=== PATIENT | male | born 1935 | race Caucasian/White ===

== ENCOUNTER 2016-05-24 13:59 | Inpatient (IN) | payer OTHER, MEDICARE ==
[2016-05-24] VITALS (7 sets, daily range): BP systolic 106–154; BP diastolic 58–68; PULSE 80–122; RESP 16–20; TEMP 96.4–99.4; O2SAT 89–98
[~2016-05-24] VITALS: Ht 175.3 cm; Wt 65.3 kg
[2016-05-24] MEDS ORDERED: PRAV40TA2 PO (14:26)
[2016-05-24] MEDS ORDERED: ASPI81CH37 CHEW (14:26)
[2016-05-24] MEDS ORDERED: VITA100018 PO (14:26)
[2016-05-24] MEDS ORDERED: METO100T PO (14:26)
[2016-05-24] MEDS ORDERED: SODIUM CHLORIDE 0.9% FLUSH 5 ML FLUSH IVF PRN (14:30)
[2016-05-24] MEDS ORDERED: methylPREDNISolone SOD SUCC 125 MG/2 ML VIAL IVP ONE (14:30)
[2016-05-24] MEDS: RESP: ALBUTEROL 2.5 MG/IPRATROPIUM 0.5 MG NEB (SCH) INH (14:31)
--- NOTE | 2016-05-24 14:47 | PD ---
HPI Chief Complaint: Respiratory Symptoms Time Seen by Provider: 14:20 Travel History International Travel<30 days: No Contact w/Intl Traveler<30days: No Traveled to known affect area: No History of Present Illness HPI This is a 80-year-old male who presents to the emergency department with 4 days of productive cough, shortness of breath, and some nasal congestion particularly in the morning, constant, moderate severity, worsening. His family finally convinced him to come to the emergency department. He says his shortness of breath worsens when he exerts himself. He is not sure what color his sputum is. He does smoke a pack of cigarettes per day. He does say he's had some increasing lower extremity swelling. He denies any recent trips. PFSH Past Medical History Hx Anticoagulant Therapy: Yes (asa 81mg) Cardiovascular Problems: Yes (htn on meds, NH, bypass) High Cholesterol: Yes Hypertension: Yes Myocardial Infarction: Yes Influenza Vaccination: Yes Social History Alcohol Use: No Tobacco Use: Yes (1 ppd) Substance Use: No Allergies-Medications (Allergen,Severity, Reaction): Coded Allergies: No Known Allergies (Verified , 05/24/16) Reported Meds & Prescriptions Reported Meds & Active Scripts Active Reported Aspirin Low Dose (Aspirin) 81 Mg Chew 81 Mg CHEW DAILY Vitamin D3 (Cholecalciferol) 1,000 Unit Tab 1,000 Units PO DAILY Pravastatin 40 Mg Tab 40 Mg PO DAILY Metoprolol Tartrate 100 Mg Tab 100 Mg PO DAILY Review of Systems Except as stated in HPI: all other systems reviewed are Neg Physical Exam Narrative GENERAL:Well appearing, no acute distress SKIN: Warm and dry. HEAD: Atraumatic. Normocephalic. EYES: Pupils equal and round. No injection or drainage. ENT: Moist mucous membranes NECK: Trachea midline. CARDIOVASCULAR: Regular rate and rhythm. No murmur appreciated. 1+ bilateral pitting edema in the lower extremities. RESPIRATORY: Diffuse expiratory wheezing, no accessory muscle use or tachypnea. GASTROINTESTINAL: Abdomen soft, non-tender, nondistended. MUSCULOSKELETAL: No obvious deformities. NEUROLOGICAL: Awake and alert. No obvious cranial nerve deficits. Moving all extremities. PSYCHIATRIC: Appropriate mood and affect; insight and judgment normal. Data Data Last Documented VS Vital Signs Date Time Temp Pulse Resp B/P Pulse Ox O2 Delivery O2 Flow Rate FiO2 05/24/16 15:32 100 18 152/58 93 Nasal Cannula 2 1/21/17 14:05 99.4 Orders Complete Blood Count With Diff (05/24/16 14:20) Comprehensive Metabolic Panel (05/24/16 14:20) B-Type Natriuretic Peptide (05/24/16 14:20) Troponin I (05/24/16 14:20) Iv Access Insert/Monitor (05/24/16 14:20) Electrocardiogram (05/24/16 14:20) Ecg Monitoring (05/24/16 14:20) Oximetry (05/24/16 14:20) Oxygen Administration (05/24/16 14:20) Chest, Single Ap (05/24/16 14:20) Sodium Chloride 0.9% Flush (Ns Flush) (05/24/16 14:30) Methylprednisolone So Succ Inj (Solumedr (05/24/16 14:30) Albuterol-Ipratropium Neb (Duoneb Neb) (05/24/16 14:30) Ceftriaxone Inj (Rocephin Inj) (05/24/16 15:15) Azithromycin Inj (Zithromax Inj) (05/24/16 15:15) Ct Thorax/ Chest Wo Iv Contras (05/24/16 ) Admit Order (Ed Use Only) (05/24/16 17:11) Labs Laboratory Tests Test 05/24/16 14:44 White Blood Count 15.9 TH/MM3 Red Blood Count 3.49 MIL/MM3 Hemoglobin 10.4 GM/DL Hematocrit 30.8 % Mean Corpuscular Volume 88.1 FL Mean Corpuscular Hemoglobin 29.7 PG Mean Corpuscular Hemoglobin 33.8 % Concent Red Cell Distribution Width 13.1 % Platelet Count 394 TH/MM3 Mean Platelet Volume 8.2 FL Neutrophils (%) (Auto) 78.7 % Lymphocytes (%) (Auto) 11.0 % Monocytes (%) (Auto) 7.0 % Eosinophils (%) (Auto) 0.8 % Basophils (%) (Auto) 2.5 % Neutrophils # (Auto) 12.5 TH/MM3 Lymphocytes # (Auto) 1.8 TH/MM3 Monocytes # (Auto) 1.1 TH/MM3 Eosinophils # (Auto) 0.1 TH/MM3 Basophils # (Auto) 0.4 TH/MM3 CBC Comment DIFF FINAL Differential Comment Sodium Level 137 MEQ/L Potassium Level 4.1 MEQ/L Chloride Level 103 MEQ/L Carbon Dioxide Level 23.3 MEQ/L Anion Gap 11 MEQ/L Blood Urea Nitrogen 22 MG/DL Creatinine 1.60 MG/DL Estimat Glomerular Filtration 42 ML/MIN Rate Random Glucose 104 MG/DL Calcium Level 8.8 MG/DL Total Bilirubin 0.4 MG/DL Aspartate Amino Transf 12 U/L (AST/SGOT) Alanine Aminotransferase 10 U/L (ALT/SGPT) Alkaline Phosphatase 59 U/L Troponin I LESS THAN 0.02 NG/ML B-Type Natriuretic Peptide 124 PG/ML Total Protein 7.1 GM/DL Albumin 2.4 GM/DL MDM Medical Decision Making Medical Screen Exam Complete: Yes Emergency Medical Condition: Yes Interpretation(s) Afebrile, tachycardic, hypoxic on room air Leukocytosis with left shift Renal insufficiency BNP is 124 Last 24 hours Impressions Chest X-Ray 05/24/16 1420 Signed Impressions: Service Date/Time: Tuesday, May 24, 2016 14:51 - CONCLUSION: 1. Ovoid mass overlying the right lower lung zone measuring 6.5 cm. This could represent a focal round pneumonia or a pulmonary mass/malignancy. Consider chest CT with IV contrast for further characterization if it would assist with clinical management. 2. There is also mild airspace consolidation at the left lung base. Bereket Kevin MD Differential Diagnosis Pneumonia, congestive heart failure, lung cancer, pulmonary embolism Narrative Course This is a 80-year-old male who presents to the emergency department with worsening shortness of breath over the past week. He was placed on a monitor and an IV was established. He was found to be dyspneic and hypoxic on room air to 88%. Chest x-ray demonstrates a right sided lung mass. CT was obtained which demonstrates right sided lung mass as well as possible pneumonia. Patient was given ceftriaxone and azithromycin, DuoNeb's and methylprednisolone. He will be admitted for continued antibiotic therapy. Physician Communication Physician Communication Discussed with Dr. Calderon Diagnosis Primary Impression: Lung mass Additional Impression: Pneumonia Qualified Code: J18.1 - Pneumonia of left lower lobe due to infectious organism Admitting Information Admitting Physician Requests: Admit Zehra Regan MD May 24, 2016 14:46
[2016-05-24 14:58] LABS: AUTOMATED NEUTROPHIL # 12.5 TH/MM3 (1.8-7.7); BASOPHIL # 0.4 TH/MM3 (0-0.2); BASOPHIL % 2.5 % (0.0-2.0); EOSINOPHIL # 0.1 TH/MM3 (0-0.4); EOSINOPHIL % 0.8 % (0.0-4.0); HEMATOCRIT 30.8 % (39.0-51.0); LYMPHOCYTE # 1.8 TH/MM3 (1.0-4.8); MEAN CELL VOLUME 88.1 FL (80.0-100.0); MEAN CORPUSCULAR HEMOGLOBIN 29.7 PG (27.0-34.0); MEAN CORPUSCULAR HGB CONC 33.8 % (32.0-36.0); NEUT % 78.7 % (16.0-70.0); PLATELET COUNT 394 TH/MM3 (150-450); RED BLOOD COUNT 3.49 MIL/MM3 (4.50-5.90); RED CELL DISTRIBUTION WIDTH 13.1 % (11.6-17.2); WHITE BLOOD COUNT 15.9 TH/MM3 (4.0-11.0)
[2016-05-24 14:59] LABS: HEMO FLAGS DIFF FINAL
[2016-05-24 15:02] LABS: CHLORIDE 103 MEQ/L (98-107); POTASSIUM 4.1 MEQ/L (3.5-5.1); SODIUM (NA) 137 MEQ/L (136-145)
[2016-05-24 15:06] LABS: ANION GAP 11 MEQ/L (5-15); BICARBONATE 23.3 MEQ/L (21.0-32.0); BLOOD UREA NITROGEN 22 MG/DL (7-18)
[2016-05-24 15:09] LABS: ALT (GPT) 10 U/L (12-78); AST (GOT) 12 U/L (15-37); GLOMERULAR FILTRATION RATE 42 ML/MIN (>89)
[2016-05-24 15:10] LABS: TOTAL BILIRUBIN ADULT 0.4 MG/DL (0.2-1.0)
[2016-05-24 15:12] LABS: ALKALINE PHOSPHATASE 59 U/L (45-117)
[2016-05-24] MEDS ORDERED: AZITHROMYCIN INJ 500 MG in SODIUM CHLOR 0.9% 250 ML INJ 250 ML IV ONE (15:15)
[2016-05-24] MEDS ORDERED: cefTRIAXone INJ 1,000 MG in SODIUM CHLORIDE 0.9% INJ 100 ML IV ONE (15:15)
--- NOTE | 2016-05-24 15:15 | RADHPO ---
EXAM DATE/TIME: 05/24/2016 14:51 [facility] COMPARISON: No previous studies available for comparison. INDICATIONS : Short of breath, cough MEDICAL HISTORY : None. SURGICAL HISTORY : None. ENCOUNTER: Initial ACUITY: 1 week PAIN SCORE: 0/10 LOCATION: Bilateral chest FINDINGS: Portable AP view of the chest demonstrates a normal-sized cardiac silhouette. There is a focal massli ke consolidative opacity overlying the right lower lung zone measuring 6.5 x 4.9 cm. There is also mi ld consolidation at the left lung base. No pleural effusion or pneumothorax is visualized. Bones and soft tissues demonstrate no acute finding. CONCLUSION: 1. Ovoid mass overlying the right lower lung zone measuring 6.5 cm. This could represent a focal roun d pneumonia or a pulmonary mass/malignancy. Consider chest CT with IV contrast for further characteri zation if it would assist with clinical management. 2. There is also mild airspace consolidation at the left lung base. Bereket Kevin MD on May 24, 2016 at 15:12 Board Certified Radiologist. This report was verified electronically.
--- NOTE | 2016-05-24 16:51 | RADHPO ---
EXAM DATE/TIME: 05/24/2016 15:57 [facility] COMPARISON: No previous studies available for comparison. INDICATIONS : Cough and shortness of breath for three days. RADIATION DOSE: 10.89 CTDIvol (mGy) MEDICAL HISTORY : Myocardial infarction. Hypertension. SURGICAL HISTORY : CABG ENCOUNTER: Initial ACUITY: 3 days PAIN SCALE: 0/10 LOCATION: Bilateral chest TECHNIQUE: Volumetric scanning of the chest was performed. Using automated exposure control and adjustment of the mA and/or kV according to patient size, radiation dose was kept as low as reasonab ly achievable to obtain optimal diagnostic quality images. FINDINGS: There is a 6 cm mass seen at the posterior right lower lobe. This is concerning for an underlying ne oplasm. There is some surrounding suspected inflammatory change in the right lower lobe. There is a lso some patchy nodularity seen in the posterior aspect of the right upper lobe and in the anteromedi al right middle lobe and the left lingula. There is more prominent consolidation seen at the left lo wer lobe. There do appear to be enlarged lymph nodes in the subcarinal region. Normal sized lymph n odes are seen throughout the rest of the mediastinum. 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 Atherosclerotic c alcifications are seen throughout the arterial system including at the coronary arteries. The bony s tructures are grossly intact. CONCLUSION: 1. Large 6 cm mass in the right lower lobe concerning for possible neoplasm. This is amenable to pe rcutaneous biopsy. 2. Patchy areas of suspected consolidation seen throughout the rest of the lungs as described above being most prominent in the left lower lobe. Superimposed areas of pneumonia need to be considered. 3. Possible adenopathy in the subcarinal region. 4. Incidental note is made of an aberrant right subclavian artery. This is a normal variant. Bereket Cho MD on May 24, 2016 at 16:29 Board Certified Radiologist. This report was verified electronically.
[2016-05-24] MEDS ORDERED: ACETAMINOPHEN 325 MG TAB PO PRN (18:00)
[2016-05-24] MEDS ORDERED: ONDANSETRON HCL 4 MG/2 ML VIAL IVP PRN (18:00)
[2016-05-24] MEDS ORDERED: SODIUM CHLORIDE 0.9% FLUSH 5 ML FLUSH FLUSH PRN (18:00)
[2016-05-24] MEDS ORDERED: BISACODYL 10 MG SUPP PR PRN (18:00)
[2016-05-24] MEDS ORDERED: MAGNESIUM HYDROXIDE SUSP 30 ML CUP PO PRN (18:00)
[2016-05-24] MEDS ORDERED: RESP: ALBUTEROL 2.5 MG/IPRATROPIUM 0.5 MG NEB (PRN) NEB (18:00)
[2016-05-24] MEDS ORDERED: ENOXAPARIN SODIUM 40 MG/0.4 ML SYRINGE SQ SCH (20:00)
[2016-05-24] MEDS: SODIUM CHLORIDE 0.9% FLUSH 5 ML FLUSH FLUSH SCH (21:00)
[2016-05-24] MEDS: RESP: ALBUTEROL 2.5 MG/IPRATROPIUM 0.5 MG NEB (SCH) NEB (21:14)
[2016-05-25] VITALS: BP 106/53; PULSE 80; RESP 16; TEMP 96; O2SAT 96
[2016-05-25 04:00] VITALS: BP 111/50; PULSE 71; RESP 18; TEMP 96.7; O2SAT 98
[2016-05-25] MEDS: RESP: ALBUTEROL 2.5 MG/IPRATROPIUM 0.5 MG NEB (SCH) NEB ×2 (07:20→11:33)
[2016-05-25 07:22] VITALS: O2SAT 97
[2016-05-25 07:30] LABS: AUTOMATED NEUTROPHIL # 10.4 TH/MM3 (1.8-7.7); BASOPHIL # 0.1 TH/MM3 (0-0.2); BASOPHIL % 1.3 % (0.0-2.0); EOSINOPHIL % 0.1 % (0.0-4.0); HEMATOCRIT 30.5 % (39.0-51.0); HEMO FLAGS DIFF FINAL; LYMPH % 6.3 % (9.0-44.0); LYMPHOCYTE # 0.7 TH/MM3 (1.0-4.8); MEAN CELL VOLUME 89.5 FL (80.0-100.0); MEAN CORPUSCULAR HEMOGLOBIN 30.5 PG (27.0-34.0); MEAN CORPUSCULAR HGB CONC 34.1 % (32.0-36.0); MONO % 1.7 % (0.0-8.0); NEUT % 90.6 % (16.0-70.0); PLATELET COUNT 367 TH/MM3 (150-450); WHITE BLOOD COUNT 11.4 TH/MM3 (4.0-11.0)
[2016-05-25 08:00] VITALS: BP 137/64; PULSE 76; PULSE 78; RESP 18; TEMP 97; O2SAT 93
[2016-05-25] MEDS ORDERED: cefTRIAXone INJ 1,000 MG in SODIUM CHLORIDE 0.9% INJ 100 ML IV SCH (08:00)
[2016-05-25] MEDS ORDERED: ASPIRIN 81 MG CHEW TAB CHEW SCH (09:00)
[2016-05-25] MEDS ORDERED: PRAVASTATIN SOD 40 MG TAB PO SCH (09:00)
[2016-05-25] MEDS ORDERED: METOPROLOL TARTRATE 100 MG TAB PO SCH (09:00)
[2016-05-25] MEDS ORDERED: AZITHROMYCIN 250 MG TAB PO SCH (09:00)
[2016-05-25] MEDS ORDERED: CHOLECALCIFEROL (VIT D3) 1000 UNIT TAB PO SCH (09:00)
[2016-05-25] MEDS: SODIUM CHLORIDE 0.9% FLUSH 5 ML FLUSH FLUSH SCH (09:58)
--- NOTE | 2016-05-25 10:58 | HHI.HP ---
[facility] Primary Care Physician [facility] Admission Diagnosis pneumonia Diagnoses: (1) Pneumonia (2) Lung mass Diagnosis: Secondary (3) Hypertension Diagnosis: Secondary (4) Hyperlipidemia Diagnosis: Secondary Chief Complaint: Cough Travel History International Travel<30 Days: No Contact w/Intl Traveler <30 Da: No Traveled to Known Affected Are: No History of Present Illness 80 year-old male with known history of hypertension, hyperlipidemia, coronary disease who presented to hospital because of cough. Patient states that he is in normal state of health until approximately 4 days ago when he started developing a cough with white phlegm production. 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 He drank some fluids without any relief so he went home and his [id number] brought him to the hospital for evaluation. Patient had workup done in emergency department with chest x-ray which did indicate a mass in the right lung field as well as airspace consolidation. CT scan was done of the chest which does confirm a large 6 cm mass in the right lower lobe concerning for possible neoplasm as well as patchy areas of consolidation seen throughout the rest of the lungs. Given those findings is recommended by ER physician the patient be admitted the hospital for further evaluation management. Upon speaking with the patient today states that he did have the cough without any hemoptysis. He denied any shortness of breath, dyspnea. He does continue to smoke one and one half pack a cigarettes a day. He denies any appetite changes, weight loss, weight gain. Patient states that a few days ago he did have an episode where he ate hotdogs and he got some indigestion with heartburn and in the past and episode of nausea vomiting. Denies any chest pain, palpitations, abdominal pain , diarrhea, constipation. Review of Systems Constitutional: COMPLAINS OF: Diaphoretic episodes, DENIES: Fatigue, Fever, Weight gain, Weight loss, Chills, Dizziness, Change in appetite, Night Sweats Eyes: DENIES: Blurred vision, Diplopia, Eye inflammation, Eye pain, Vision loss , Double Vision Ears, nose, mouth, throat: DENIES: Vertigo, Nasal discharge, Throat pain, Ear Pain, Running Nose, Sinus Pain Respiratory: COMPLAINS OF: Cough, Sputum production, DENIES: Apneas, Snoring, Wheezing, Hemoptysis, Shortness of breath Cardiovascular: DENIES: Chest pain, Palpitations, Syncope, Dyspnea on Exertion , PND, Lower Extremity Edema, Orthopnea, Claudication Gastrointestinal: DENIES: Abdominal pain, Black stools, Bloody stools, Constipation, Diarrhea, Nausea, Vomiting, Difficulty Swallowing, Anorexia Neurologic: DENIES: Abnormal gait, Headache, Localized weakness, Paresthesias, Seizures, Speech Problems, Tremor, Poor Balance Psychiatric: DENIES: Anxiety, Confusion, Mood changes, Depression Past Family Social History Past Medical History Hypertension Hyperlipidemia Coronary artery disease History myocardial infarction Chronic tobacco use Past Surgical History Cardiac catheterization Reported Medications Reported Meds & Active Scripts Active Reported Aspirin Low Dose (Aspirin) 81 Mg Chew 81 Mg CHEW DAILY Vitamin D3 (Cholecalciferol) 1,000 Unit Tab 1,000 Units PO DAILY Pravastatin 40 Mg Tab 40 Mg PO DAILY Metoprolol Tartrate 100 Mg Tab 100 Mg PO DAILY Allergies: Coded Allergies: No Known Allergies (Verified , 05/24/16) Family History Reviewed and patient states that his mother and father both from natural causes in their 70s. Social History Patient has been smoking 1-1/2 pack a cigarettes a day since he was 10 years old. Denies any alcohol or illicit drugs Physical Exam Vital Signs Vital Signs Date Time Temp Pulse Resp B/P Pulse Ox O2 Delivery O2 Flow Rate FiO2 05/25/16 08:00 97.0 78 18 137/64 93 05/25/16 07:22 97 Nasal Cannula 2.00 05/25/16 04:00 96.7 71 18 111/50 98 05/25/16 00:00 96.0 80 16 106/53 96 05/24/16 21:15 95 Nasal Cannula 2.00 05/24/16 20:34 80 05/24/16 20:30 98 Nasal Cannula 2.00 05/24/16 20:20 106 20 92 Nasal Cannula 2 05/24/16 20:00 110 20 154/68 92 Nasal Cannula 2 05/24/16 20:00 96.4 82 20 125/61 98 05/24/16 17:36 92 Room Air 05/24/16 17:35 122 89 Room Air 05/24/16 15:32 100 18 152/58 93 Nasal Cannula 2 05/24/16 15:32 92 Nasal Cannula 2 05/24/16 14:24 95 Room Air 05/24/16 14:05 99.4 80 16 106/59 93 Physical Exam GENERAL: Well-developed, well-nourished, in no acute distress. alert and orientated HEENT: Head is normocephalic without any lesions or masses noted. Facial features are symmetric. Eyes: Pupils equal round reactive to light. Extraocular muscles are intact. Conjunctivae were clear. Oropharyngeal: Pharynx without any erythema edema. Tongue is midline without deviation. Buccal mucosa is moist without any masses or lesions NECK: Supple without any masses. Trachea midline no deviation. No JVD, no bruits are appreciated CARDIAC: Regular rhythm, regular rate. S1/S2 are heard. No murmurs gallops or rubs. LUNGS: Clear to auscultation bilaterally. No wheeze, rhonchi or rales. No use of accessory muscles on inspiration or expiration. ABDOMEN: Soft, nontender. Nondistended. Bowel sounds heard in all 4 quadrants. No organomegaly or masses. Negative rebound, negative guarding EXTREMITIES: No edema, pulses are equal bilaterally. No cyanosis or clubbing NEUROLOGY: Mood and affect appear appropriate. Cranial nerves II through XII grossly intact. Muscle strength 5/5 in upper and lower extremities bilaterally. Deep tendon reflexes are 2+ in upper and lower extremities bilaterally. Laboratory Laboratory Tests Test 05/24/16 05/25/16 14:44 06:25 White Blood Count 15.9 11.4 Red Blood Count 3.49 3.40 Hemoglobin 10.4 10.4 Hematocrit 30.8 30.5 Mean Corpuscular Volume 88.1 89.5 Mean Corpuscular Hemoglobin 29.7 30.5 Mean Corpuscular Hemoglobin 33.8 34.1 Concent Red Cell Distribution Width 13.1 13.0 Platelet Count 394 367 Mean Platelet Volume 8.2 8.6 Neutrophils (%) (Auto) 78.7 90.6 Lymphocytes (%) (Auto) 11.0 6.3 Monocytes (%) (Auto) 7.0 1.7 Eosinophils (%) (Auto) 0.8 0.1 Basophils (%) (Auto) 2.5 1.3 Neutrophils # (Auto) 12.5 10.4 Lymphocytes # (Auto) 1.8 0.7 Monocytes # (Auto) 1.1 0.2 Eosinophils # (Auto) 0.1 0.0 Basophils # (Auto) 0.4 0.1 CBC Comment DIFF FINAL DIFF FINAL Differential Comment Sodium Level 137 Potassium Level 4.1 Chloride Level 103 Carbon Dioxide Level 23.3 Anion Gap 11 Blood Urea Nitrogen 22 Creatinine 1.60 Estimat Glomerular Filtration 42 Rate Random Glucose 104 Calcium Level 8.8 Total Bilirubin 0.4 Aspartate Amino Transf 12 (AST/SGOT) Alanine Aminotransferase 10 (ALT/SGPT) Alkaline Phosphatase 59 Troponin I LESS THAN 0.02 B-Type Natriuretic Peptide 124 Total Protein 7.1 Albumin 2.4 Result Diagram: 05/25/16 0625 05/24/16 1444 Imaging Last Impressions Chest X-Ray 05/24/16 1420 Signed Impressions: Service Date/Time: Tuesday, May 24, 2016 14:51 - CONCLUSION: 1. Ovoid mass overlying the right lower lung zone measuring 6.5 cm. This could represent a focal round pneumonia or a pulmonary mass/malignancy. Consider chest CT with IV contrast for further characterization if it would assist with clinical management. 2. There is also mild airspace consolidation at the left lung base. Bereket Kevin MD Chest CT 05/24/16 0000 Signed Impressions: Service Date/Time: Tuesday, May 24, 2016 15:57 - CONCLUSION: 1. Large 6 cm mass in the right lower lobe concerning for possible neoplasm. This is amenable to percutaneous biopsy. 2. Patchy areas of suspected consolidation seen throughout the rest of the lungs as described above being most prominent in the left lower lobe. Superimposed areas of pneumonia need to be considered. 3. Possible adenopathy in the subcarinal region. 4. Incidental note is made of an aberrant right subclavian artery. This is a normal variant. 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 They would like to pursue outpatient work up with the [facility], care was discussed extensively Leukocytosis, resolved Continue monitor CBC Hypertension, hyperlipidemia, coronary artery disease Continue home medications DVT prevention Lovenox Written by Ad Abel PA-C, acting as scribe for Dr. Calderon on 05/25/16 at 1245. The documentation accurately reflects the work and decisions performed face-to- face by Dr. Calderon on 05/25/16 at 1245. Discharge disposition Discharge home in stable condition activity: Ad Alicia Diet: healthy heart diet Medication per mediation reconciliation sheet follow up with [place] [facility] tomorrow Code Status Full code Physician Certification 2 Midnight Certification Type: Admission for Inpatient Services Order for Inpatient Services The services are ordered in accordance with Medicare regulations or non- Medicare payer requirements, as applicable. In the case of services not specified as inpatient-only, they are appropriately provided as inpatient services in accordance with the 2-midnight benchmark. Estimated LOS (days): 2 days is the estimated time the patient will need to remain in the hospital, assuming treatment plan goals are met and no additional complications. Post-Hospital Plan: Not yet determined Problem Qualifiers (1) Pneumonia: Qualified Code: J18.1 - Pneumonia of left lower lobe due to infectious organism (2) Hypertension: Qualified Code: I15.9 - Secondary hypertension (3) Hyperlipidemia: Qualified Code: E78.5 - Hyperlipidemia, unspecified hyperlipidemia type Ad Abel May 25, 2016 10:58
[2016-05-25 11:47] LABS: POTASSIUM 4.5 MEQ/L (3.5-5.1)
[2016-05-25 12:00] VITALS: BP 139/72; PULSE 72; RESP 20; TEMP 97.8; O2SAT 94
[2016-05-25] MEDS ORDERED: LEVA750T PO (12:58)
--- NOTE | 2016-05-25 12:59 | HHI.DCPOC ---
Discharge Care Plan Diagnosis: (1) Pneumonia (2) Lung mass Goals to Promote Your Health * To prevent worsening of your condition and complications * To maintain your health at the optimal level Directions to Meet Your Goals Take your medications as prescribed Follow your dietary instruction Follow activity as directed Keep your appointments as scheduled Take your immunizations and boosters as scheduled If your symptoms worsen call your PCP, if no PCP go to Urgent Care Center or Emergency Room Smoking is Dangerous to Your Health. Avoid second hand smoke Call the 24-hour hour crisis hotline for domestic abuse at Ad Abel May 25, 2016 12:59
--- NOTE | 2016-05-26 21:28 | EKG ---
Date Performed: 05/24/2016 Time Performed: 14:27:38 PTAGE: 80 years EKG: Sinus arrhythmia with a PAC Right bundle branch block Abnormal ECG PREVIOUS TRACING : 01/18/2002 05.09 Compared to the previous tracing, ST elevations inferiorly no longer noted DOCTOR: Oscar Ramsay Interpretating Date/Time 05/26/2016 21:27:03
== END 2016-05-25 14:27 | disposition home or self-care (01) | DRG 194 ==
LOC: PHED 13:59 → PHEDA 17:13 → PH3A 20:14
PROVIDERS: ADMIT Family Medicine; ATTEND Family Medicine
DX: J18.9 Pneumonia, unspecified organism (principal); C34.31 Malignant neoplasm of lower lobe, right bronchus or lung; I15.9 Secondary hypertension, unspecified; F17.210 Nicotine dependence, cigarettes, uncomplicated; I25.2 Old myocardial infarction; E78.00 Pure hypercholesterolemia, unspecified; I25.10 Atherosclerotic heart disease of native coronary artery without angina pectoris; Z95.1 Presence of aortocoronary bypass graft; R09.02 Hypoxemia; E78.5 Hyperlipidemia, unspecified
CPT/HCPCS: 71010; 71250; 80048; 80053; 83880; 84484; 85025; 87070; 87205; 93005; 94620; 94640; 94664; 96365; 96367; 96375; G8987-GP; G8988-GP; J0456; J0696; J1650; J2930; J7050